=== PATIENT | female | born 1990 | race Caucasian/White ===

== ENCOUNTER → 2017-05-13 09:43 | Outpatient (CLI) | payer OTHER, SELFPAY ==
[2017-05-13 11:37] LABS: hCG Titer Quant., Serum 11233 mIU/mL (<9 non-preg)
== END ==
PROVIDERS: Visit Provider Obstetrics & Gynecology
DX: N91.2 Amenorrhea, unspecified (principal)
CPT/HCPCS: 36415; 84702

== ENCOUNTER → 2017-08-24 12:12 | Outpatient (CLI) | payer OTHER, SELFPAY ==
[2017-08-25 11:15] LABS: HSV 2 IgG < 0.91 index (0.00-0.90)
[2017-08-26 04:13] LABS: HSV 1 By PCR Negative (Negative)
[2017-08-26 10:18] LABS: HSV 2 By PCR Positive (Negative)
== END ==
PROVIDERS: Visit Provider Obstetrics & Gynecology
DX: N90.89 Other specified noninflammatory disorders of vulva and perineum (principal)
CPT/HCPCS: 36415; 86695; 86696; 87529

== ENCOUNTER → 2019-01-02 11:40 | Outpatient (CLI) | payer BC, SELFPAY | PROVIDERS: Visit Provider Obstetrics & Gynecology | DX: Z12.4 Encounter for screening for malignant neoplasm of cervix (principal) ==

== ENCOUNTER → 2019-02-03 14:00 | Outpatient (CLI) | payer BC, SELFPAY ==
[2019-02-03 12:06] VITALS: BMI 35.5
== END ==
PROVIDERS: Referring Provider Physician Assistant Medical; Visit Provider Physician Assistant Medical
DX: J02.9 Acute pharyngitis, unspecified (principal)
CPT/HCPCS: 87070

== ENCOUNTER → 2019-02-19 14:40 | Outpatient (CLI) | payer BC, MEDICAID, SELFPAY ==
[2019-02-03 12:06] VITALS: BMI 35.5
[2019-02-19 16:29] LABS: hCG Titer Quant., Serum < 1 mIU/mL (1-3)
== END ==
PROVIDERS: Visit Provider Obstetrics & Gynecology
DX: N91.0 Primary amenorrhea (principal)
CPT/HCPCS: 36415; 84702

== ENCOUNTER → 2019-07-17 10:15 | Outpatient (CLI) | payer BC, MEDICAID, SELFPAY ==
[2019-05-23 09:32] VITALS: BMI 35.5
[2019-07-17 12:03] LABS: Basophil# 0.04 X10^3/uL; Basophil% 0.5 % (0-1); Eosinophil# 0.04 X10^3/uL; Eosinophils% 0.5 % (0-5); Hematocrit 42.7 % (37-47); Hemoglobin 13.9 g/dL (12.0-15.0); Lymphocyte % 16.4 % (19-41); Mean Corp Hgb Conc 32.6 g/dL (32-36); Mean Corpuscular Hgb 29.6 pg (27.0-32.0); Monocyte# 0.47 X10^3/uL; Monocyte% 5.9 % (0-10); NRBC Flagged by Analyzer 0 % (0-5); Neutrophil # 5.98 X10^3/uL (2.7-7.7); Neutrophil % 75.7 % (47-70); Platelet Count 275 K/mm3 (150-450); RBC Distribution Width CV 13.3 % (11.6-14.6); RBC Distribution Width SD 43.8 fl (35.1-43.9); Red Blood Count 4.69 M/mm3 (4.2-5.4); White Blood Count 7.9 K/mm3 (4.4-11.0)
[2019-07-17 12:05] LABS: T3 Total - Triiodothyronine 1.01 ng/mL (0.6-1.81)
[2019-07-17 12:10] LABS: Anion Gap 4 (5-15); BUN 15 mg/dL (7-18); BUN/Creat Ratio 20.2 RATIO (10-20); Calcium,Total 8.9 mg/dL (8.5-10.1); Chloride 104 mmol/L (98-107); Creatinine, Serum 0.74 mg/dL (0.55-1.02); EST Glomerular Filtration Rate 100 mL/min (>60); Est Glom Filt Rate - Afr Amer 121 mL/min (>60); Glucose 86 mg/dL (74-106); Potassium 3.5 mmol/L (3.5-5.1); Sodium Level 138 mmol/L (136-145); T4 Free Direct 1.04 ng/dL (0.76-1.46); Thyroid Stim Hormone (TSH) 0.49 uIU/mL (0.358-3.74)
[2019-07-20 03:06] LABS: QNTFERON TB Mitogen Value > 10.00 IU/mL (.); QNTFERON TB Nil Value 0.01 IU/mL (.); QNTFERON TB1+ Ag Value 0.01 IU/mL (.); QNTFERON TB2+ Ag Value 0.01 IU/mL (.)
[2019-07-20 05:17] LABS: ASO Titer 363.8 IU/mL (0.0-200.0); QNTIFERON TB Positive Criteria Negative (Negative)
== END ==
PROVIDERS: PCP Family Medicine; Referring Provider Dermatology Pediatric Dermatology; Visit Provider Dermatology Pediatric Dermatology
DX: L40.0 Psoriasis vulgaris (principal); L40.4 Guttate psoriasis; B00.1 Herpesviral vesicular dermatitis; E04.1 Nontoxic single thyroid nodule
CPT/HCPCS: 36415; 80048; 84439; 84443; 84480; 85025; 86060; 86480

== ENCOUNTER 2019-11-04 04:40 | Emergency (ER) | payer BC, MEDICAID, SELFPAY ==
[2019-05-23 09:32] VITALS: BMI 35.5
[2019-11-04 04:41] VITALS: BP 138/68; PULSE 74; RESP 19; TEMP 36.9; O2SAT 98; BMI 27.0
[2019-11-04 04:44] VITALS: BP 120/68; PULSE 94; RESP 20; TEMP 36.6; O2SAT 99
--- NOTE | 2019-11-04 04:44 | ED.DCSUM_ITS ---
History of Present Illness Chief Complaint: Flank Pain Informant: Patient Onset: Today Context: Sudden Onset Timing: Continuous Current Severity: Moderate Maximum Severity: Severe Narrative: The patient is a 29-year-old female who is otherwise healthy, history of ADHD on Adderall, the presents to the emergency department with rather acute onset right flank pain. Patient states she had some mild dysuria yesterday. She states that she woke at approximately 4 AM, with a sharp, stabbing pain in her right back. She has been nauseated without vomiting. She denies any fevers or chills. She has no history of prior kidney stone. She denies any history of prior surgery. She states that she is never had pain like this before. She has not taken anything for her pain. She has otherwise been in her normal state of health. Prior similar symptoms: No Recent Illness/Hospitalization: No Past Medical History - Allergies and Home Meds Allergies/Adverse Reactions: Allergies No Known Allergies Allergy (Verified 05/23/19 09:31) Primary Care Physician: Bri Rosales MD [STAFF PHYSICIAN] - 3-5 Days if not improving Prior records reviewed: Yes Past Medical History: - - ADHD Surgical History: no surgical history Smoking Status: Never smoker Review of Systems General: Denies: Chills, Fever, Sweats Eyes: Denies: Visual changes - bilaterally, Diplopia ENT: Denies: Rhinorrhea, Sore throat Cardiovascular: Denies: Chest pain, Palpitations Respiratory: Denies: Dyspnea, Cough, Dyspnea on exertion Gastrointestinal: Reports: Nausea. Denies: Abdominal pain, Vomiting, Diarrhea, Melena, Hematochezia Genitourinary: Reports: Dysuria. Denies: Hematuria, Frequency Musculoskeletal: Reports: Back pain. Denies: Extremity Pain Skin: Denies: Rash, Wounds Neurological: Denies: Headache, Weakness, Numbness Physical Exam Vital Signs/Narrative: Vital Signs Temp Pulse Resp BP Pulse Ox 11/04/19 04:41 98.4 F 74 19 H 138/68 H 98 Inital Vital Signs reviewed: Yes General: Well nourished, Well developed, No Acute Distress Head: Normocephalic, Atraumatic Eyes: Perrl, EOMI ENT: Moist mucous membranes, No rhinorrhea Neck: Supple, Nontender Cardiovascular: Regular rate, Regular rhythm, No murmurs Respiratory: No distress, CTA bilaterally, Chest nontender Abdomen: Soft, Nontender, Nondistended, Normal bowel sounds Back: Normal Inspection, CVA tenderness Extremities: Nontender, No edema Skin: Normal color, No rash Neurological: Alert, Oriented x3, Cranial nerves II-XII grossly intact, Normal Strength, Normal Sensation Psychological: Normal affect, Normal Mood Diagnostic/Tx/Re-eval Clinical Impression(s) from Imaging Studies Abdomen/Pelvis CT 11/04/19 04:44 IMPRESSION: 1. No CT evidence of acute intra-abdominal disease. 2. Nonobstructing right-sided renal calculus. Electronically Signed: Mirian Gonzalez MD at 6:06 EDT , Service support , Abnormal Lab Results 11/04/19 11/04/19 11/04/19 04:55 04:55 04:55 WBC 12.0 H RBC 4.58 Hgb 13.9 Hct 41.3 MCV 90.2 MCH 30.3 MCHC 33.7 RDW Std Deviation 39.9 RDW Coeff of Brian 12.2 Plt Count 291 MPV 9.7 Immature Gran % (Auto) 0.300 Neut % (Auto) 62.9 Lymph % (Auto) 28.7 [place] % (Auto) 6.8 Eos % (Auto) 1.1 Baso % (Auto) 0.2 Absolute Neuts (auto) 7.6 Absolute Lymphs (auto) 3.46 Nucleated RBC % 0 Sodium 140 Potassium 3.5 Chloride 107 Carbon Dioxide 23.0 Anion Gap 10 BUN 12 Creatinine 0.78 Estim Creat Clear Calc 93.55 Est GFR (MDRD) Af Amer 113 Est GFR (MDRD) Non-Af 93 BUN/Creatinine Ratio 15.3 Glucose 106 Calcium 9.6 Serum , Qual NEGATIVE - Medical Decision Making The patient presents with rather acute onset right-sided flank pain with nausea. Her symptoms are consistent with renal colic. IV was established. She was treated with anti-inflammatories, antiemetics, and analgesics. She had total resolution of her pain. Labs are relatively unremarkable. Patient underwent CT. There is a 1 mm nephrolithiasis without obstruction. It is hard to discern distal in the tract, but does appear as if she has a 2 mm stone right at the UVJ, but there is no evidence of acute obstruction. There is no significant hydronephrosis. Urine was obtained. It does show some evidence of infection. The patient is now pain-free. I do feel that she is safe for outpatient therapy. She will be treated with analgesics and antiemetics along with outpatient urology follow-up. She is comfortable with this plan of care. Impression 1. Right-sided urolithiasis with renal colic ED Disposition - Plan for ED Patient: Instructions: ED Renal Stone w Colic Prescriptions: Smz/Tmp Ds [Bactrim Ds] 1 tab PO BID #14 tab Prescription Printed Hydrocodone Bitart/Apap 5-325 [[facility] 5MG-325MG] 1 tab PO Q6H PRN PRN 3 Days #10 tab PRN Reason: Pain Prescription Printed Ondansetron [Zofran Odt] 4 mg PO Q8H PRN PRN #10 tab PRN Reason: Nausea Prescription Printed Referrals: Bri Rosales MD [STAFF PHYSICIAN] - 3-5 Days if not improving
--- NOTE | 2019-11-04 04:44 | CT_ITS ---
STUDY: CT ABDOMEN AND PELVIS WITHOUT CONTRAST REASON FOR EXAM: Female, 29 years old patient with bilateral flank pain, elevated white count and urinary tract infection symptoms. RADIATION DOSAGE (If Supplied By Facility): CTDIvol = ( 6.50 ) mGy, DLP = ( 328.02 ) mGycm TECHNIQUE: Transaxial images were obtained from the dome of the diaphragm to the symphysis pubis without oral contrast, and without intravenous contrast. Sagittal and coronal images were reconstructed. Individualized dose optimization techniques were used for this CT. COMPARISON: None. FINDINGS: The visualized lung bases are unremarkable. The visualized portions of the heart are within normal limits. Normal liver. Normal gallbladder and extrahepatic biliary system. Normal spleen. Normal pancreas. Normal bilateral adrenal glands. There is a tiny nonobstructing right-sided renal calculus measuring about 1 mm in size. Normal left kidney. Normal visualized stomach. There is no evidence for dilated bowel, ascites or pneumoperitoneum. There is some fluid-filled small bowel. The small bowel has a grossly normal unenhanced appearance. There is stool visible in the colon. The appendix is visualized and appears normal. Normal abdominal aorta. There is venous distention of the inferior vena cava (IVC). Normal retroperitoneum. Normal urinary bladder. Normal visualized uterus. Normal abdominal wall. Normal osseous structures. CT/Abdomen/Pelvis without Cont IMPRESSION: 1. No CT evidence of acute intra-abdominal disease. 2. Nonobstructing right-sided renal calculus. Electronically Signed: Mirian Gonzalez MD at 6:06 EDT , Service support ,
[2019-11-04] MEDS: Ondansetron 4 MG/2 ML Vial IV (04:50)
[2019-11-04] MEDS: Ketorolac 30 MG/ML Syringe IV (04:50)
[2019-11-04] MEDS: Morphine 4 MG/ML Syringe IV (04:50)
[2019-11-04] MEDS: 0.9% Normal Saline 1,000 ML 250 ML IV (04:59)
[2019-11-04 05:03] LABS: Absolute Lymphocyte Count 3.46 X10^3/uL (0.83-4.51); Absolute Neutrophil Count 7.6 X10^3/uL (2.0-7.7); Basophil# 0.03 X10^3/uL; Basophil% 0.2 % (0-1); Eosinophil# 0.13 X10^3/uL; Eosinophils% 1.1 % (0-5); Hematocrit 41.3 % (37-47); Hemoglobin 13.9 g/dL (12.0-15.0); Lymphocyte # 3.46 X10^3/ul (4.0); Lymphocyte % 28.7 % (19-41); Mean Corp Hgb Conc 33.7 g/dL (32-36); Mean Corpuscular Hgb 30.3 pg (27.0-32.0); Mean Corpuscular Volume 90.2 fL (81-99); Mean Platelet Vol. 9.7 fl (6.2-12.0); Monocyte# 0.82 X10^3/uL; Monocyte% 6.8 % (0-10); NRBC Flagged by Analyzer 0 % (0-5); Neutrophil # 7.56 X10^3/uL (2.7-7.7); Neutrophil % 62.9 % (47-70); Platelet Count 291 K/mm3 (150-450); RBC Distribution Width CV 12.2 % (11.6-14.6); RBC Distribution Width SD 39.9 fl (35.1-43.9); Red Blood Count 4.58 M/mm3 (4.2-5.4)
[2019-11-04 05:14] LABS: Internal QC Validated? YES +Cl - CLEAR BKGD; Pregnancy, Serum, hCG Quali. NEGATIVE Negative
[2019-11-04 05:16] LABS: Anion Gap 10 (5-15); BUN 12 mg/dL (7-18); BUN/Creat Ratio 15.3 RATIO (10-20); Calcium,Total 9.6 mg/dL (8.5-10.1); Chloride 107 mmol/L (98-107); Creatinine, Serum 0.78 mg/dL (0.55-1.02); EST Glomerular Filtration Rate 93 mL/min (>60); Est Glom Filt Rate - Afr Amer 113 mL/min (>60); Estimated Creatinine Clearance 93.55 ml/min; Glucose 106 mg/dL (74-106); Potassium 3.5 mmol/L (3.5-5.1); Sodium Level 140 mmol/L (136-145)
[2019-11-04 05:48] LABS: Mucous, Urine 0 SEEN /hpf (<or=2+); Squamous Epithelial Cells - UA 0 SEEN /hpf (5-10)
[2019-11-04 05:49] LABS: Color, Urine Yellow (Yellow); Glucose, Dipstick Normal (Normal); Ketone-Dipstick 15 mg/dl (Negative); Leukocyte Esterase-Dipstick 500 /ul (Negative); Nitrite-Dipstick Negative (Negative); Occult Blood-Urine 250 /ul (Negative); Protein-Dipstick 100 mg/dl (Negative); Urine Bilirubin Dipstick Negative (Negative); Urine Clarity Sl. Cloudy (Clear); Urine Urobilinogen Normal (Normal)
--- NOTE | 2019-11-04 06:00 | ED.RN ---
OK TO DC SEPSIS SCREENS.
[2019-11-04 06:41] LABS: Bacteria 2+ /hpf (None Seen); Red Blood Cells-Urine 50-100 SEEN /hpf (0-5); White Blood Cells 50-100 SEEN /hpf (0-5)
[2019-11-04] MEDS: Smz/Tmp Ds Tablet 1 TABLET PO (06:49)
[2019-11-04 06:51] VITALS: PULSE 85; RESP 18; O2SAT 99
== END 2019-11-04 06:53 | disposition home or self-care (01) ==
PROVIDERS: Emergency Provider Emergency Medicine; PCP Family Medicine
DX: N20.0 Calculus of kidney (principal); F90.9 Attention-deficit hyperactivity disorder, unspecified type; Z79.899 Other long term (current) drug therapy
CPT/HCPCS: 74176; 80048; 81001; 84703; 85025; 87077; 87086; 87088; 87186; 96361; 96374; 96375; 99285; J7030; A4216; J2405

== ENCOUNTER → 2019-12-14 11:11 | Outpatient (CLI) | payer BC, MEDICAID, SELFPAY ==
[2019-12-14 13:21] LABS: HIV - WCH Non-Reactive (Nonreactive); Hepatitis B Surface Antibody Reactive; Hepatitis C Antibody Non-Reactive (Nonreactive)
[2019-12-17 04:06] LABS: Chlamydia By Nucleic Acid AMP Negative (Negative)
[2019-12-17 11:49] LABS: Gonococcus By Nucleic Acid AMP Negative (Negative)
[2019-12-20 05:22] LABS: Rapid Plasmin Reagin (RPR) NONREACTIVE (NONREACTIVE)
== END ==
PROVIDERS: PCP Family Medicine; Visit Provider Obstetrics & Gynecology
DX: Z11.3 Encounter for screening for infections with a predominantly sexual mode of transmission (principal)
CPT/HCPCS: 36415; 86592; 86703; 86706; 86803; 87491; 87591

== ENCOUNTER 2020-04-07 23:24 | Emergency (ER) | payer BC, MEDICAID, SELFPAY ==
[2020-04-07 23:25] VITALS: BP 115/72; PULSE 92; RESP 16; TEMP 36.6; O2SAT 100; BMI 27.4
--- NOTE | 2020-04-07 23:35 | ED.VIS.GI ---
History of Present Illness Chief Complaint: Abd Pain - Abdominal Pain/Flank Pain Onset: Hours - 1 Context: Sudden Onset Timing: Continuous, Waxes and wanes Quality: Aching Location: - - pelvis and low back; bilat, seems worse on right Current Severity: Moderate Maximum Severity: Severe Worsened by: Nothing Relieved by: Nothing - Nausea/Vomiting/Emesis GI Symptom: Nausea, Vomiting Quality: Nonbilious - Diarrhea/Melena/Hematochezia GI Symptom: Negative for: Diarrhea, Melena, Hematochezia Associated Symptoms: Negative for: Dysuria, Frequency, Hematuria, Urgency Narrative: Sudden onset of severe pelvic pain worse on the right and radiating to the mid low back 30 to 60 minutes prior to arrival. She had a kidney stone last year that she passed on her own, she states this feels similar but she cannot tell if it is exactly the same or not. Last normal menstrual cycle was 2 or 3 weeks ago, she states she has been regular and does not think she is . No history of any abdominal surgeries in the past. No other systemic symptoms except for the nausea/vomiting. Prior similar symptoms: Yes - similarities to when had kidney stone last year - Past Medical History (1) ADHD Status: Chronic Past Medical History - Allergies and Home Meds Allergies/Adverse Reactions: Allergies No Known Allergies Allergy (Verified 04/07/20 23:27) Primary Care Physician: Rigoberto Noel MD [Primary Care Provider] - Surgical History: no surgical history Lives: With Family Smoking Status: Never smoker Review of Systems General: Denies: Chills, Fever, Sweats Eyes: Denies: Visual changes - bilaterally, Diplopia ENT: Denies: Rhinorrhea, Sore throat Cardiovascular: Denies: Chest pain, Palpitations Respiratory: Denies: Dyspnea, Cough, Dyspnea on exertion Gastrointestinal: Reports: Abdominal pain, Nausea, Vomiting. Denies: Diarrhea, Melena, Hematochezia Genitourinary: Denies: Dysuria, Hematuria, Frequency Musculoskeletal: Reports: Back pain. Denies: Myalgias, Swelling, Extremity Pain Skin: Denies: Rash, Wounds Neurological: Denies: Headache, Weakness, Numbness Physical Exam Vital Signs/Narrative: Vital Signs Temp Pulse Resp BP Pulse Ox 04/07/20 23:25 98 F 92 16 115/72 100 Inital Vital Signs reviewed: Yes General: Well nourished, Well developed, No Acute Distress Head: Normocephalic, Atraumatic Eyes: Perrl, EOMI ENT: Moist mucous membranes, No rhinorrhea Neck: Supple, Nontender Cardiovascular: Regular rate, Regular rhythm, No murmurs Respiratory: No distress, CTA bilaterally, Chest nontender Abdomen: Soft, Nondistended, Normal bowel sounds, Tender - Right pelvis, just medial to midline. Otherwise nontender abdomen. Negative for: Guarding, Rebound tenderness Back: Nontender, Normal Inspection. Negative for: CVA tenderness Extremities: Nontender, No edema. Negative for: Calf Tenderness Skin: Normal color, No rash, No Trauma Neurological: Alert, Oriented x3, Cranial nerves II-XII grossly intact, Normal Strength, Normal Sensation, Normal Gait Psychological: Normal affect, Normal Mood Diagnostic/Tx/Re-eval Laboratory Results 04/07/20 04/07/20 04/07/20 23:40 23:40 23:40 WBC 6.1 RBC 4.48 Hgb 13.3 Hct 40.9 MCV 91.3 MCH 29.7 MCHC 32.5 RDW Std Deviation 40.9 RDW Coeff of Brian 12.2 Plt Count 278 MPV 9.6 Immature Gran % (Auto) 1.000 H Neut % (Auto) 42.2 L Lymph % (Auto) 42.6 H [place] % (Auto) 8.9 Eos % (Auto) 4.6 Baso % (Auto) 0.7 Absolute Neuts (auto) 2.6 Absolute Lymphs (auto) 2.58 Nucleated RBC % 0 Sodium 140 Potassium 4.1 Chloride 107 Carbon Dioxide 31.0 Anion Gap 2 L BUN 16 Creatinine 0.79 Estim Creat Clear Calc 96.25 Est GFR (MDRD) Af Amer 111 Est GFR (MDRD) Non-Af 92 BUN/Creatinine Ratio 20.2 H Glucose 97 Calcium 8.9 Urine Color Yellow Urine Clarity Clear Urine pH 8.0 Ur Specific [place] 1.015 Urine Protein Negative Urine Glucose (UA) Normal Urine Ketones Negative Urine Occult Blood Negative Urine Nitrite Negative Urine Bilirubin Negative Urine Urobilinogen Normal Ur Leukocyte Esterase 25 H Urine RBC 0 SEEN Urine WBC 0-5 SEEN Ur Squamous Epith Cells 0-5 SEEN Amorphous Sediment RARE Urine Bacteria RARE Urine Mucus 0 SEEN Urine Test Negative - Medical Decision Making After IV the Zofran, Toradol, morphine, patient is feeling much better states her pain is gone. I reexamined her, she has very minimal discomfort with palpation in the right pelvis, more laterally. She is not tender at McBurney's point. She does not have any guarding or rebound. Differential here includes a kidney stone although she did not have microscopic hematuria, 30% of stones can test negative, she had a tiny nonobstructing renal stone on the RIGHT in October on a CT scan, so I think this is the most likely diagnosis given the history is consistent with this; also possible is ovarian cyst rupture, intestinal pains from a variety of potential causes, less likely ovarian torsion since she has barely any tenderness now. We discussed all this in reasons to return to the ER, but for now I would have her do expectant management at home, she was given a prescription for analgesics and Zofran and advised to strain her urine for the next 48 hours unless her pain does not return after 24. Given urine strainers to go. ED Disposition - Plan for ED Patient: Disposition: Home or Assisted Living Diagnosis: Acute right flank pain, History of nephrolithiasis Instructions: ED Pelvic Pain, Unknown Cause, ED Flank Pain, Uncertain Cause Prescriptions: Hydrocodone Bitart/Apap 5-325 [[facility] 5MG-325MG] 1 tab PO Q4H PRN PRN 2 Days #10 tab PRN Reason: Pain Prescription Printed Ondansetron [Zofran Odt] 8 mg PO Q8H PRN PRN #14 tab PRN Reason: Nausea Prescription Printed Referrals: Rigoberto Noel MD [Primary Care Provider] - 1 Week if not improving (Or ER if worse) Additional Instructions: Strain all your urine for the next 48 hours or so to check for a small stone/pebble, if you have no recurrent pain, you can stop after 24 hours.
[2020-04-07] MEDS: Ketorolac 30 MG/ML Syringe IV (23:45)
[2020-04-07] MEDS: Ondansetron 4 MG/2 ML Vial IV (23:45)
[2020-04-07] MEDS: Morphine 4 MG/ML Syringe IV (23:45)
[2020-04-07 23:47] LABS: Mucous, Urine 0 SEEN /hpf (<or=2+); Red Blood Cells-Urine 0 SEEN /hpf (0-5)
[2020-04-07 23:48] LABS: Color, Urine Yellow (Yellow); Glucose, Dipstick Normal (Normal); Ketone-Dipstick Negative (Negative); Leukocyte Esterase-Dipstick 25 /ul (Negative); Nitrite-Dipstick Negative (Negative); Occult Blood-Urine Negative /ul (Negative); Protein-Dipstick Negative (Negative); Specific Gravity, Urine 1.015 (1.002-1.030); Urine Bilirubin Dipstick Negative (Negative); Urine Clarity Clear (Clear); Urine Urobilinogen Normal (Normal)
[2020-04-07 23:50] LABS: Absolute Lymphocyte Count 2.58 X10^3/uL (0.83-4.51); Absolute Neutrophil Count 2.6 X10^3/uL (2.0-7.7); Basophil# 0.04 X10^3/uL; Basophil% 0.7 % (0-1); Eosinophil# 0.28 X10^3/uL; Eosinophils% 4.6 % (0-5); Hematocrit 40.9 % (37-47); Hemoglobin 13.3 g/dL (12.0-15.0); Lymphocyte # 2.58 X10^3/ul (4.0); Lymphocyte % 42.6 % (19-41); Mean Corp Hgb Conc 32.5 g/dL (32-36); Mean Corpuscular Hgb 29.7 pg (27.0-32.0); Mean Corpuscular Volume 91.3 fL (81-99); Mean Platelet Vol. 9.6 fl (6.2-12.0); Monocyte# 0.54 X10^3/uL; Monocyte% 8.9 % (0-10); NRBC Flagged by Analyzer 0 % (0-5); Neutrophil # 2.55 X10^3/uL (2.7-7.7); Neutrophil % 42.2 % (47-70); Platelet Count 278 K/mm3 (150-450); RBC Distribution Width CV 12.2 % (11.6-14.6); RBC Distribution Width SD 40.9 fl (35.1-43.9); Red Blood Count 4.48 M/mm3 (4.2-5.4); White Blood Count 6.1 K/mm3 (4.4-11.0)
[2020-04-07 23:52] LABS: Internal QC Validated? YES +Cl - CLEAR BKGD; Pregnancy, Urine Negative Negative
[2020-04-07 23:57] LABS: Amorphous Sediment RARE; Bacteria RARE /hpf (None Seen); Squamous Epithelial Cells - UA 0-5 SEEN /hpf (5-10); White Blood Cells 0-5 SEEN /hpf (0-5)
[2020-04-08 00:01] LABS: Anion Gap 2 (5-15); BUN 16 mg/dL (7-18); BUN/Creat Ratio 20.2 RATIO (10-20); Calcium,Total 8.9 mg/dL (8.5-10.1); Chloride 107 mmol/L (98-107); Creatinine, Serum 0.79 mg/dL (0.55-1.02); EST Glomerular Filtration Rate 92 mL/min (>60); Est Glom Filt Rate - Afr Amer 111 mL/min (>60); Estimated Creatinine Clearance 96.25 ml/min; Glucose 97 mg/dL (74-106); Potassium 4.1 mmol/L (3.5-5.1); Sodium Level 140 mmol/L (136-145)
[2020-04-08 00:48] VITALS: BP 97/63; PULSE 74; RESP 15; O2SAT 98
== END 2020-04-08 00:50 | disposition home or self-care (01) ==
LOC: ED 04-08 00:34
PROVIDERS: Emergency Provider Emergency Medicine; PCP Family Medicine
DX: R10.9 Unspecified abdominal pain (principal); R11.2 Nausea with vomiting, unspecified; F90.9 Attention-deficit hyperactivity disorder, unspecified type; Z87.442 Personal history of urinary calculi; Z79.899 Other long term (current) drug therapy
CPT/HCPCS: 80048; 81001; 81025; 85025; 96374; 96375; 99283; A4216; J2405

== ENCOUNTER 2021-02-23 06:34 | Emergency (ER) | payer BC, MEDICAID, SELFPAY ==
[2021-02-23 06:34] VITALS: BP 127/82; PULSE 90; RESP 18; TEMP 36.9; O2SAT 99; BMI 26.9
--- NOTE | 2021-02-23 06:45 | CT_ITS ---
STUDY: CT ABDOMEN AND PELVIS WITHOUT CONTRAST REASON FOR EXAM: Female, 30 years old. Right flank pain. History of kidney stones. RADIATION DOSAGE (If Supplied By Facility): CTDIvol = ( 6.93 ) mGy, DLP = ( 349.58 ) mGycm TECHNIQUE: Transaxial images were obtained from the dome of the diaphragm to the symphysis pubis without oral contrast, and without intravenous contrast. Sagittal and coronal images were reconstructed. Individualized dose optimization techniques were used for this CT. COMPARISON: Comparison is made with prior study dated 11/04/2019. FINDINGS: There is evidence of multiple bilateral nodular densities seen at the lung bases. These were not present on prior examination. The largest nodule is in the posterior medial segment of the left lower lobe and measures 9 mm. The visualized portions of the heart are within normal limits. Normal liver. Normal gallbladder and extrahepatic biliary system. Normal spleen. Normal pancreas. Normal bilateral adrenal glands. A punctate calcification is seen in the mid calyx of the right kidney. Normal left kidney. Normal visualized stomach. Normal small intestine. Normal colon. The appendix is visualized and appears normal. Normal abdominal aorta. Normal inferior vena cava. Normal retroperitoneum. Normal urinary bladder. Calcified phleboliths are seen within the pelvis. Small follicles are seen in the left ovary. Normal abdominal wall. Normal osseous structures. CT/Abdomen/Pelvis without Cont IMPRESSION: Multiple small noncalcified pulmonary nodule seen at the lung bases. Nonobstructive tiny calculus in the midpole calyx of the right kidney. No obstructive uropathy is seen at this time. Electronically Signed: Vadim Perez MD at 8:56 EST , Service support ,
--- NOTE | 2021-02-23 06:46 | EX.ED.DYSGE1 ---
HPI History of Present Illness Chief Complaint: Flank Pain Narrative Narrative: Patient is a 30-year-old female who states that this morning she was getting up and doing her normal routine when she developed sudden onset sharp right sided low back/flank pain. She denies any recent trauma or excessive activity. She denies any fevers or chills diarrhea or dysuria or hematuria. She states that she took [id number] medication with minimal symptom improvement and secondary to this comes in for evaluation. Otherwise patient denies any loss of bowel or bladder control or IV drug use PFSH [facility] Medical History child Kidney stone Home Medications dextroamphetamine-amphetamine 5 mg tablet 25 mg PO DAILY 02/03/19 [History Last Taken Unknown] calcipotriene-betamethasone 0.005 %-0.064 % topical ointment 1 applic TOPICAL DAILY 12/17/20 [History Last Taken Unknown] hydrocodone-acetaminophen 1 tab PO Q6H PRN 3 Days #12 tab 02/23/21 [Rx Last Taken Unknown] ibuprofen 600 mg PO Q6H PRN #40 tab 02/23/21 [Rx Last Taken Unknown] Allergy/AdvReac Type Severity Reaction Status Date / Time No Known Allergies Allergy Verified 02/23/21 06:36 Social History Smoking Status: Never smoker alcohol intake: current alcohol intake frequency: a few times a week ROS ROS ED Constitutional Constitutional ED: Denies chills or fever(s) ENT ENT ED: Denies sore throat Cardiovascular Cardiovascular: Denies chest pain Respiratory/Chest Respiratory/Chest: Denies cough or dyspnea Gastrointestinal Gastrointestinal: Reports nausea; Denies abdominal pain, diarrhea or vomiting Genitourinary Genitourinary ED: Denies dysuria or hematuria Musculoskeletal Musculoskeletal: Reports back pain; Denies myalgias Integumentary Denies rash Neurologic Neurologic: Denies headache(s) EXAM Physical Exam Const Vital Signs: 02/23/21 06:34 Temperature 98.4 F Temperature Source Temporal Pulse Rate 90 Respiratory Rate 18 Blood Pressure 127/82 H Blood Pressure Mean 97 Pulse Ox 99 Positive well nourished and well developed General Appearance ED: well developed Eyes PERRL and EOMs intact bilaterally Neck supple Resp normal respiratory effort and clear to auscultation bilaterally Cardio regular rate and regular rhythm Rate: other Other Details: Radial pulses are +2-4 bilaterally are equal and symmetric GI normal to inspection, nondistended, normoactive bowel sounds, non-tender, non-distended and no masses GI Narrative: No voluntary guarding no rigidity no pulsatile mass Auscultation: normoactive bowel sounds Palpation: soft Back/Spine Back/Spine Narrative: Mild right CVA pain noted. No bony deformity or step-off of the thoracic or lumbar spine no midline pain with palpation. Patellar reflexes are +2-4 bilaterally. No saddle anesthesia. Negative clonus and Babinski. Negative straight leg raise. Extremity normal to inspection Neuro oriented x3 and CN's II-XII intact bilaterally Sensorium / Orientation: alert Motor Exam: strength 5/5 throughout Psych mental status grossly normal Skin no rashes or lesions noted Skin Narrative: No overlying soft tissue changes to suggest trauma or infection MDM MDM MDM Narrative Medical decision making narrative: Patient presented to the ER with sudden onset right sided back pain with no reported trauma or soft tissue changes to suggest infection. She also denies any loss of bowel or bladder control or IV drug use making her risk factors for cauda equina or epidural abscess low. Chart review reveals she had a small right-sided kidney stone about 1 year ago. Therefore this time of the sudden onset sharp pain I do feel this is most likely the cause of her symptoms. Basic labs were obtained which shows no clinically significant finding and a noncontrast CT was ordered. At this time I feel that if the CT confirms that she have a stone but does not have findings to suggest urosepsis or acute kidney injury she is still safe for discharge Lab Data Attestation: I reviewed the patient's lab results. Labs: Laboratory Results - last 24 hr 02/23/21 02/23/21 06:41 06:41 WBC 3.4 L RBC 4.27 Hgb 12.9 Hct 38.8 MCV 90.9 MCH 30.2 MCHC 33.2 RDW Std Deviation 42.4 RDW Coeff of Brian 12.8 Plt Count 183 MPV 9.7 Immature Gran % (Auto) 0.300 Neut % (Auto) 40.8 L Lymph % (Auto) 48.4 H [place] % (Auto) 9.0 Eos % (Auto) 1.2 Baso % (Auto) 0.3 Absolute Neuts (auto) 1.4 L Absolute Lymphs (auto) 1.62 Nucleated RBC % 0 Sodium 139 Potassium 3.7 Chloride 106 Carbon Dioxide 28.0 Anion Gap 5 BUN 10 Creatinine 0.76 Estim Creat Clear Calc 99.17 Est GFR (MDRD) Af Amer 117 Est GFR (MDRD) Non-Af 96 BUN/Creatinine Ratio 13.2 Glucose 106 Calcium 8.3 L Discharge Plan Triage Chief Complaint: Flank Pain ED Provider: Avni Bellamy Dx/Rx/DC Orders Clinical Impression: Kidney stone, Renal colic Instructions: ED Kidney Stone w/ Colic Prescriptions: New hydrocodone-acetaminophen 5-325 mg tablet 1 tab PO Q6H PRN (Reason: pain) 3 Days Qty: 12 RF: 0 ibuprofen 600 mg tablet 600 mg PO Q6H PRN (Reason: pain) Qty: 40 RF: 0 No Action dextroamphetamine-amphetamine [Adderall] 5 mg tablet 25 mg PO DAILY RF: 0 calcipotriene-betamethasone [Taclonex] 0.005-0.064 % ointment 1 applic topical DAILY RF: 0 Primary Care Provider: Dulce Baldwin NP Referrals: Dulce Baldwin MARKETING COMMUNICATION MANAGER, MARKETING COMMUNICATION MANAGER-C [Primary Care Provider] -
[2021-02-23] MEDS: Ketorolac 30 MG/ML Syringe IV (06:54)
[2021-02-23] MEDS: 0.9% Normal Saline 1,000 ML 999 ML IV (06:54)
[2021-02-23 06:59] LABS: Absolute Lymphocyte Count 1.62 X10^3/uL (0.83-4.51); Absolute Neutrophil Count 1.4 X10^3/uL (2.0-7.7); Basophil# 0.01 X10^3/uL; Basophil% 0.3 % (0-1); Eosinophil# 0.04 X10^3/uL; Eosinophils% 1.2 % (0-5); Hematocrit 38.8 % (37-47); Hemoglobin 12.9 g/dL (12.0-15.0); Lymphocyte # 1.62 X10^3/ul (0.83-4.51); Lymphocyte % 48.4 % (19-41); Mean Corp Hgb Conc 33.2 g/dL (32-36); Mean Corpuscular Hgb 30.2 pg (27.0-32.0); Mean Corpuscular Volume 90.9 fL (81-99); Mean Platelet Vol. 9.7 fl (6.2-12.0); NRBC Flagged by Analyzer 0 % (0-5); Neutrophil # 1.37 X10^3/uL (2.7-7.7); Neutrophil % 40.8 % (47-70); Platelet Count 183 K/mm3 (150-450); RBC Distribution Width CV 12.8 % (11.6-14.6); RBC Distribution Width SD 42.4 fl (35.1-43.9); Red Blood Count 4.27 M/mm3 (4.2-5.4); White Blood Count 3.4 K/mm3 (4.4-11.0)
[2021-02-23 07:04] LABS: Anion Gap 5 (5-15); BUN 10 mg/dL (7-18); BUN/Creat Ratio 13.2 RATIO (10-20); Calcium,Total 8.3 mg/dL (8.5-10.1); Chloride 106 mmol/L (98-107); Creatinine, Serum 0.76 mg/dL (0.55-1.02); EST Glomerular Filtration Rate 96 mL/min (>60); Est Glom Filt Rate - Afr Amer 117 mL/min (>60); Estimated Creatinine Clearance 99.17 ml/min; Glucose 106 mg/dL (74-106); Potassium 3.7 mmol/L (3.5-5.1); Sodium Level 139 mmol/L (136-145)
[2021-02-23] MEDS: Morphine 4 MG/ML Syringe IV (07:17)
[2021-02-23] MEDS: Ondansetron 4 MG/2 ML Vial IV (07:18)
--- NOTE | 2021-02-23 07:34 | ED.RN ---
During Morphine administration pt became flushed and c/o chest pain. Dr Bellamy to bedside. VSS. Pt had received a little over 2mg of Morphine at the time. Pt reports chest pain is better and is not as flushed. Pt agreeable to receive the remainder of the Morphine dose and Dr Bellamy updated pt on plan of care.
[2021-02-23 08:24] LABS: Internal QC Validated? YES +Cl - CLEAR BKGD; Pregnancy, Serum, hCG Quali. NEGATIVE Negative
[2021-02-23 08:33] LABS: Color, Urine Yellow (Yellow); Glucose, Dipstick Normal (Normal); Ketone-Dipstick Negative (Negative); Leukocyte Esterase-Dipstick 500 /ul (Negative); Nitrite-Dipstick Negative (Negative); Occult Blood-Urine Negative /ul (Negative); Protein-Dipstick 15 mg/dl (Negative); Urine Bilirubin Dipstick Negative (Negative); Urine Clarity Clear (Clear); Urine Urobilinogen Normal (Normal)
[2021-02-23 08:34] VITALS: BP 106/54; PULSE 77; RESP 16; O2SAT 100
[2021-02-23 08:41] LABS: Bacteria 1+ /hpf (None Seen); Mucous, Urine 1+ /hpf (<or=2+); Red Blood Cells-Urine 0-5 SEEN /hpf (0-5); Squamous Epithelial Cells - UA 5-10 SEEN /hpf (5-10); White Blood Cells 0-5 SEEN /hpf (0-5)
== END 2021-02-23 10:07 ==
PROVIDERS: Emergency Medicine; Emergency Provider Emergency Medicine; PCP Clinical Nurse Specialist
DX: N20.0 Calculus of kidney (principal); R91.8 Other nonspecific abnormal finding of lung field; Z87.442 Personal history of urinary calculi
CPT/HCPCS: 74176; 80048; 81001; 84703; 85025; 96361; 96374; 96375; 99283; J7030; A4216; J2405

== ENCOUNTER 2021-06-18 09:02 | Outpatient (CLI) | payer BC, MEDICAID, SELFPAY ==
[2021-06-20 00:07] LABS: Chlamydia By Nucleic Acid AMP Negative (Negative)
[2021-06-21 09:43] LABS: Gonococcus By Nucleic Acid AMP Negative (Negative)
[2021-06-23 21:29] LABS: HPV Reflexed? NOT INDICATED
== END 2021-06-18 23:59 | disposition home or self-care (01) ==
LOC: WOBLAB 09:03
PROVIDERS: PCP Clinical Nurse Specialist; Visit Provider Obstetrics & Gynecology
DX: Z12.4 Encounter for screening for malignant neoplasm of cervix (principal)
CPT/HCPCS: 87491; 87591; 88175; G0145

== ENCOUNTER → 2021-08-06 | Outpatient (CLI) | payer BC, MEDICAID, SELFPAY ==
[2021-08-08 20:07] LABS: QNTFERON TB Mitogen Value > 10.00 IU/mL (.); QNTFERON TB Nil Value 0.03 IU/mL (.); QNTFERON TB1+ Ag Value 0.03 IU/mL (.); QNTFERON TB2+ Ag Value 0.03 IU/mL (.)
[2021-08-09 08:21] LABS: Hepatitis B Core Ab Total Negative (Negative); QNTIFERON TB Positive Criteria Negative (Negative)
== END | disposition home or self-care (01) ==
LOC: MTLAB 15:16
PROVIDERS: PCP Clinical Nurse Specialist; Referring Provider Physician Assistant; Visit Provider Physician Assistant
DX: L40.0 Psoriasis vulgaris (principal); Z79.899 Other long term (current) drug therapy; B07.8 Other viral warts
CPT/HCPCS: 36415; 86480; 86704

== ENCOUNTER 2021-10-10 10:47 | Emergency (ER) | payer BC, MEDICAID, SELFPAY ==
[2021-10-10 10:47] VITALS: BP 98/84; PULSE 91; RESP 16; TEMP 37; O2SAT 100; BMI 25.7
--- NOTE | 2021-10-10 11:13 | EX.ED.DYSGE1 ---
HPI History of Present Illness Chief Complaint: Headache Informant: patient Narrative Narrative: Presents with migraine. Patient does have a history of migraine. She normally gets some fuzzy vision and then develops a headache. This happened yesterday where she started with fuzzy vision. That went away and has stayed away. Later in the day she started to develop a headache. She has had some nausea and vomiting which is also typical for her. Patient also started with headache sore throat nasal congestion slight myalgias week ago. She tested positive for COVID. She states although symptoms went away and she has been feeling fine. She states that these symptoms are typical migraine for her. She is not having fevers now. She has no neck stiffness. No rash. [facility] Medical History ADHD child COVID-19 Kidney stone Patellofemoral arthritis Home Medications dextroamphetamine-amphetamine 5 mg tablet (Adderall) 25 mg PO DAILY 02/03/19 [History Last Taken Unknown] calcipotriene-betamethasone 0.005 %-0.064 % topical ointment (Taclonex) 1 applic topical DAILY 12/17/20 [History Last Taken Unknown] hydrocodone-acetaminophen 5-325mg 5mg-325mg 1 tab PO Q6H PRN pain 3 days #12 tabs 02/23/21 [Rx Last Taken Unknown] ibuprofen 600 mg tablet 600 mg PO Q6H PRN pain #40 tabs 02/23/21 [Rx Last Taken Unknown] Allergy/AdvReac Type Severity Reaction Status Date / Time No Known Allergies Allergy Verified 02/23/21 06:36 Social History Smoking Status: Never smoker alcohol intake: current alcohol intake frequency: a few times a week ROS ROS ED Constitutional Constitutional ED: Denies fever(s) Eyes Eyes: Reports blurry vision ENT ENT ED: Denies rhinorrhea or sore throat Cardiovascular Cardiovascular: Denies chest pain Respiratory/Chest Respiratory/Chest: Denies cough or dyspnea Gastrointestinal Gastrointestinal: Denies nausea or vomiting Genitourinary Genitourinary ED: Denies dysuria Musculoskeletal Musculoskeletal: Denies myalgias or neck pain Integumentary Denies Abrasions or rash Neurologic Neurologic: Reports headache(s); Denies paresthesias or weakness Endocrine Endocrinology: Denies polydipsia or polyuria Hematologic/Lymphatic Hematologic/Lymphatic: Denies easy bleeding or easy bruising Allergic/Immunologic Allergic/Immunologic ED: Denies urticaria EXAM Physical Exam Const Vital Signs: 10/10/21 10:47 Temperature 98.6 F Temperature Source Temporal Pulse Rate 91 Respiratory Rate 16 Blood Pressure 98/84 H Blood Pressure Mean 88 Pulse Ox 100 Oxygen Delivery Method Room Air Positive well nourished and well developed Constitutional Narrative: Patient is sitting comfortably in a well lit room. Nontoxic in appearance. General Appearance ED: well developed and NAD HEENT Reports moist mucous membranes HEENT Narrative: Mucous membranes are moist. Sinuses are nontender. No nasal discharge. Both ears are clear. Eyes EOMs intact bilaterally Neck no lymphadenopathy and supple Neck Narrative: No pain with range of motion Resp normal respiratory effort and clear to auscultation bilaterally Cardio regular rate and regular rhythm GI normal to inspection, nondistended, normoactive bowel sounds and non-tender Back/Spine no CVA tenderness Extremity normal to inspection General Extremety ED: Negative for edema General Extremity: Negative for edema Neuro oriented x3 Sensorium / Orientation: alert Psych mental status grossly normal Skin no rashes or lesions noted, no wounds and skin turgor normal MDM MDM MDM Narrative Medical decision making narrative: Patient got meds. She got a rest. She states she feels markedly better and would like to go home. Discharge Plan Triage Chief Complaint: Headache ED Provider: Bert Lance Dx/Rx/DC Orders Clinical Impression: Headache, migraine Instructions: ED, Migraine (Classical) Prescriptions: No Action dextroamphetamine-amphetamine [Adderall] 5 mg tablet 25 mg PO DAILY calcipotriene-betamethasone [Taclonex] 0.005-0.064 % ointment 1 applic topical DAILY hydrocodone-acetaminophen 5-325 mg tablet 1 tab PO Q6H PRN (Reason: pain) 3 Days Qty: 12 0RF ibuprofen 600 mg tablet 600 mg PO Q6H PRN (Reason: pain) Qty: 40 0RF Primary Care Provider: Dulce Baldwin NP Referrals: Dulce Baldwin NP, [employer] [Primary Care Provider] - 1-2 Days if not improving Disposition Disposition: Home, Self Care
[2021-10-10] MEDS: proCHLORPERazine 10 MG/2 ML Vial IV (11:18)
[2021-10-10] MEDS: DiphenhydrAMINE 50 MG/ML Syringe IV (11:18)
[2021-10-10] MEDS: 0.9% Normal Saline 1,000 ML 999 ML IV (11:18)
== END 2021-10-10 14:15 | disposition home or self-care (01) ==
PROVIDERS: Emergency Provider Emergency Medicine; PCP Clinical Nurse Specialist; Visit Provider Emergency Medicine
DX: G43.909 Migraine, unspecified, not intractable, without status migrainosus (principal); F90.9 Attention-deficit hyperactivity disorder, unspecified type; Z86.16 Personal history of COVID-19; Z79.899 Other long term (current) drug therapy; Z87.442 Personal history of urinary calculi
CPT/HCPCS: 96361; 96374; 96375; 99283

== ENCOUNTER 2022-11-29 12:08 | Emergency (ER) | payer MEDICAID, SELFPAY ==
[2022-11-29 12:09] VITALS: BP 123/91; PULSE 76; RESP 18; TEMP 35.5; O2SAT 100; BMI 25.4
--- NOTE | 2022-11-29 12:33 | EX.ED.DYSGE1 ---
HPI History of Present Illness Chief Complaint: Weakness Narrative Narrative: 32-year-old female presenting with weakness and lightheadedness. She thinks she is dehydrated. She states she works at [employer] and states has been working in the heat. She has to wear long pants and long sleeves. 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 She states she has not given many breaks and she is allowed to have water on the floor. She states that she started feeling like she is dehydrated lightheaded today. She started vomiting. He has not had fever or chills. PFSH PFS Medical History ADHD child COVID-19 Kidney stone Patellofemoral arthritis Home Medications dextroamphetamine-amphetamine 5 mg tablet (Adderall) 25 mg PO DAILY 02/03/19 [History Last Taken Unknown] calcipotriene-betamethasone 0.005 %-0.064 % topical ointment (Taclonex) 1 applic topical DAILY 12/17/20 [History Last Taken Unknown] hydrocodone-acetaminophen 5-325mg 5mg-325mg 1 tab PO Q6H PRN pain 3 days #12 tabs 02/23/21 [Rx Last Taken Unknown] ibuprofen 600 mg tablet 600 mg PO Q6H PRN pain #40 tabs 02/23/21 [Rx Last Taken Unknown] ondansetron 4 mg disintegrating tablet 4 mg PO Q8H PRN PRN Nausea #14 tabs 11/29/22 [Rx Last Taken Unknown] Allergy/AdvReac Type Severity Reaction Status Date / Time No Known Allergies Allergy Verified 11/29/22 12:11 Social History Smoking Status: Never smoker alcohol intake: current alcohol intake frequency: a few times a week ROS ROS ED ROS Narrative Lightheadedness Constitutional Constitutional ED: Denies chills, fever(s) or sweats Eyes Eyes: Denies blurry vision or change in vision ENT ENT ED: Denies ear pain or sore throat Cardiovascular Cardiovascular: Denies chest pain, palpitations or racing heartbeat Respiratory/Chest Respiratory/Chest: Denies cough, dyspnea or sputum Gastrointestinal Gastrointestinal: Reports nausea and vomiting; Denies abdominal pain, constipation or diarrhea Genitourinary Genitourinary ED: Denies dysuria, hematuria or urinary frequency Musculoskeletal Musculoskeletal: Denies arthralgias, myalgias or neck pain Integumentary Denies abscess, Abrasions or rash Neurologic Neurologic: Denies headache(s), paresthesias or weakness Psychiatric Psychiatric: Denies anxiety, depression, suicidal ideation or suicidal thoughts Endocrine Endocrinology: Denies polydipsia or polyuria EXAM Physical Exam Const Vital Signs: 11/29/22 12:09 11/29/22 12:28 Temperature 96 F L Temperature Source Temporal Pulse Rate 76 Respiratory Rate 18 Respiratory Pattern Normal Blood Pressure 123/91 H Blood Pressure Mean 101 Pulse Ox 100 Oxygen Delivery Method Room Air Positive well nourished General Appearance ED: NAD; Negative for pallor HEENT Reports moist mucous membranes Eyes PERRL and EOMs intact bilaterally Chest Wall inspection of chest normal Resp normal respiratory effort and clear to auscultation bilaterally Auscultation: Negative for rales, rhonchi or wheezes Cardio regular rate and regular rhythm GI normal to inspection, nondistended, normoactive bowel sounds Neuro oriented x3 and CN's II-XII intact bilaterally Sensorium / Orientation: alert Psych Mood & Affect: tearful Skin no rashes or lesions noted General Skin Exam: Negative for jaundice or pallor MDM MDM MDM Narrative Medical decision making narrative: Patient presenting with nausea and vomiting. She is concerned that she is dehydrated because she is working extended hours in the heat with longsleeve clothes on. She states that she is not allowed to get breaks for water. She not have the water in the near area where she is working. Patient was upset and very tearful. Urinalysis was obtained and was negative for infection. There was some contamination. She does not have any urinary symptoms. hCG was negative. Patient was given 2 L of IV fluids and Zofran and feels much better. She will be given a prescription for Zofran for home. I did go over the [employer]SHA requirements for hydration and hot weather with her. I counseled her that they are required to allow her to drink water during work especially in hot weather. She replied to me that she wrote an email to her work resigning. Impression: 1. Nausea/vomiting sign 2. Dehydration Lab Data Attestation: I reviewed the patient's lab results. Labs: Laboratory Results - last 24 hr 11/29/22 12:40 Urine Color Yellow Urine Clarity Sl. Cloudy Urine pH 8.0 Ur Specific [place] 1.015 Urine Protein 15 H Urine Glucose (UA) Normal Urine Ketones 15 H Urine Occult Blood 10 H Urine Nitrite Negative Urine Bilirubin Negative Urine Urobilinogen Normal Ur Leukocyte Esterase 500 H Urine RBC 0-5 SEEN Urine WBC 25-50 SEEN Ur Squamous Epith Cells 10-25 SEEN Urine Bacteria 2+ Urine Mucus 1+ Urine Test Negative Discharge Plan Triage Chief Complaint: Weakness ED Provider: Jabier Sewell Dx/Rx/DC Orders Instructions: ED Dehydration (Adult) Prescriptions: New ondansetron 4 mg tablet,disintegrating 4 mg PO Q8H PRN PRN (Reason: Nausea) Qty: 14 0RF No Action dextroamphetamine-amphetamine [Adderall] 5 mg tablet 25 mg PO DAILY calcipotriene-betamethasone [Taclonex] 0.005-0.064 % ointment 1 applic topical DAILY hydrocodone-acetaminophen 5-325 mg tablet 1 tab PO Q6H PRN (Reason: pain) 3 Days Qty: 12 0RF ibuprofen 600 mg tablet 600 mg PO Q6H PRN (Reason: pain) Qty: 40 0RF Primary Care Provider: Dulce Baldwin NP Referrals: Dulce Baldwin NP, [employer] [Primary Care Provider] - Disposition Disposition: Home, Self Care Discharge Date/Time: 11/29/22 14:38
[2022-11-29] MEDS: Ondansetron 4 MG/2 ML Vial IV (12:52)
[2022-11-29] MEDS: 0.9% Normal Saline 1,000 ML 1000 ML IV ×2 (12:54→13:39)
[2022-11-29 12:55] LABS: Color, Urine Yellow (Yellow); Glucose, Dipstick Normal (Normal); Ketone-Dipstick 15 mg/dl (Negative); Leukocyte Esterase-Dipstick 500 /ul (Negative); Nitrite-Dipstick Negative (Negative); Occult Blood-Urine 10 /ul (Negative); Protein-Dipstick 15 mg/dl (Negative); Specific Gravity, Urine 1.015 (1.002-1.030); Urine Bilirubin Dipstick Negative (Negative); Urine Clarity Sl. Cloudy (Clear); Urine Urobilinogen Normal (Normal)
[2022-11-29 13:04] LABS: Bacteria 2+ /hpf (None Seen); Mucous, Urine 1+ /hpf (<or=2+); Red Blood Cells-Urine 0-5 SEEN /hpf (0-5); Squamous Epithelial Cells - UA 10-25 SEEN /hpf (5-10); White Blood Cells 25-50 SEEN /hpf (0-5)
[2022-11-29 13:05] LABS: Internal QC Validated? YES +Cl - CLEAR BKGD; Pregnancy, Urine Negative Negative; Record Kit Lot#,Urine Preg HCG0000667200
== END 2022-11-29 14:38 | disposition home or self-care (01) ==
PROVIDERS: Emergency Provider Student in an Organized Health Care Education/Training Program; PCP Clinical Nurse Specialist; Visit Provider Student in an Organized Health Care Education/Training Program
DX: E86.0 Dehydration (principal); R11.0 Nausea; F90.9 Attention-deficit hyperactivity disorder, unspecified type; Z79.899 Other long term (current) drug therapy
CPT/HCPCS: 81001; 81025; 96361; 96374; 99283; J7030; A4216; J2405

== ENCOUNTER → 2025-03-04 | Outpatient (CLI) | payer MEDICAID, SELFPAY ==
[2025-03-06 17:08] LABS: QNTFERON TB Mitogen Value > 10.00 IU/mL (.); QNTFERON TB Nil Value 0.09 IU/mL (.); QNTFERON TB1+ Ag Value 0.12 IU/mL (.); QNTFERON TB2+ Ag Value 0.09 IU/mL (.); QNTIFERON TB Positive Criteria Negative (Negative)
== END | disposition home or self-care (01) ==
LOC: MTLAB 16:25
PROVIDERS: PCP Clinical Nurse Specialist; Referring Provider Physician Assistant; Visit Provider Physician Assistant
DX: L40.0 Psoriasis vulgaris (principal)
CPT/HCPCS: 36415; 86480